=== PATIENT | female | born 1985 | race African-American/Black ===

== ENCOUNTER 2019-01-22 16:48 | Emergency (ER) | payer OTHER ==
[~2019-01-22] VITALS: Ht 162.6 cm; Wt 70.8 kg
[~2019-01-22 16:48] MED LIST: ALBU2.5V8 IH; ALPR1TAB2 PO; PARO10TA57 PO; PNV1TABL12 PO
[2019-01-22 16:53] VITALS: BP 132/58
[2019-01-22] MEDS ORDERED: AMOX1TAB61 PO (17:23)
[2019-01-22] MEDS ORDERED: IBUP-1060 PO (17:23)
--- NOTE | 2019-01-22 17:24 | PHYS DOC ---
Past Medical History Past Medical History: Depression, GERD Additional Past Medical Histor: PREECLAMPSIA, esophageal stricture Past Surgical History: Cholecystectomy, , Tubal ligation, Other Additional Past Surgical Histo: esophageal dilation Alcohol Use: Rarely Drug Use: Marijuana Adult General Chief Complaint Chief Complaint: OTHER COMPLAINTS [facility] HPI Patient is a 33 year old patient with history of myasthenia gravis who presents with complaining of swelling of her neck. Patient complaining of left cervical edema and tenderness since she woke up this morning as a constant problem that gradually getting worse. Patient denies fever and chills, sore throat, nasal congestion, cough and shortness of breath, dental infection, history of lymphadenopathy. Patient rated her pain 8/10. Review of Systems Review of Systems Constitutional: Denies fever or chills [] Eyes: Denies change in visual acuity, redness, or eye pain [] HENT: Denies nasal congestion or sore throat [] Respiratory: Denies cough or shortness of breath [] Cardiovascular: No additional information not addressed in HPI [] GI: Denies abdominal pain, nausea, vomiting, bloody stools or diarrhea [] : Denies dysuria or hematuria [] Musculoskeletal: Denies back pain or joint pain [] Integument: Denies rash or skin lesions [] Neurologic: Denies headache, focal weakness or sensory changes [] Endocrine: Denies polyuria or polydipsia [] All other systems were reviewed and found to be within normal limits, except as documented in this note. Allergies Allergies Allergies Coded Allergies Type Severity Reaction Last Updated Verified Egg Derived Allergy Severe Throat swelled up 05/18/13 Yes aripiprazole Allergy Severe Joints started to shut down / throat started clos ing 05/18/13 Yes I S O L A T I O N *CONTACT* Allergy Unknown 12/18/14 Yes Physical Exam Physical Exam Constitutional: Well developed, well nourished, no acute distress, non-toxic appearance. [] HENT: Normocephalic, atraumatic, bilateral external ears normal, oropharynx moist, no oral exudates, nose normal. [] Eyes: PERRLA, EOMI, conjunctiva normal, no discharge. [] Neck: Left anterior cervical 2 cm lymphadenopathy with surrounding mild edema without erythema or sign of abscess,Normal range of motion, no tenderness, supple, no stridor. [] Cardiovascular:Heart rate regular rhythm, no murmur [] Lungs & Thorax: Bilateral breath sounds clear to auscultation [] Skin: Warm, dry, no erythema, no rash. [] Back: No tenderness, no CVA tenderness. [] Extremities: No tenderness, no cyanosis, no clubbing, ROM intact, no edema. [] Neurologic: Alert and oriented X 3, normal motor function, normal sensory function, no focal deficits noted. [] Psychologic: Affect normal, judgement normal, mood normal. [] No axillary or inguinal lymphadenopathy Current Patient Data Vital Signs Vital Signs Date Time Temp Pulse Resp B/P (MAP) Pulse Ox O2 Delivery O2 Flow Rate FiO2 01/22/19 16:53 99.1 68 16 132/58 (82) 100 99.1 EKG EKG [] Radiology/Procedures Radiology/Procedures [] Course & Med Decision Making Course & Med Decision Making Pertinent Labs reviewed. (See chart for details) Evaluation of patient in ER showed 33-year-old female patient with single left cervical lymphadenopathy without source of infection. Prescription for Augmentin and ibuprofen was given and patient was advised to follow-up with her primary ca re physician in 7-10 days if the lymph node does not getting smaller for referral to ENT/surgeon for possible biopsy. Dragon Disclaimer Dragon Disclaimer This electronic medical record was generated, in whole or in part, using a voice recognition dictation system. Departure Departure Impression: Primary Impression: Left cervical lymphadenopathy Disposition: 01 HOME, SELF-CARE (at 1719) Condition: STABLE Referrals: TITI COX DO (PCP) Additional Instructions: Drink plenty of liquids Follow-up with your primary care physician in 7-10 days if the lymph node does n ot getting smaller Return to ER if not getting better Scripts Ibuprofen (IBUPROFEN) 800 Mg Tablet 800 MG PO PRN Q8HRS PRN for INFLAMMATION, #20 TAB Prov: IVORY ALEJANDRO MD 01/22/19 Amoxicillin/Potassium Clav (AUGMENTIN 875-125 TABLET) 1 Each Tablet 1 TAB PO Q12HR, #20 TAB Prov: IVORY ALEJANDRO MD 01/22/19 IVORY ALEJANDRO MD Jan 22, 2019 17:24
== END 2019-01-22 17:35 | disposition home or self-care (01) ==
LOC: ER 16:48
DX: R59.0 Localized enlarged lymph nodes (principal); K21.9 Gastro-esophageal reflux disease without esophagitis; Z91.012 Allergy to eggs; Z91.041 Radiographic dye allergy status; Z88.8 Allergy status to other drugs, medicaments and biological substances
CPT/HCPCS: 87070; 87880; 99283

== ENCOUNTER 2019-05-03 09:07 | Emergency (ER) | payer OTHER ==
[~2019-05-03] VITALS: Ht 163.8 cm; Wt 63.6 kg
[~2019-05-03 09:07] MED LIST changes: +AMOX1TAB61 PO; +IBUP-1060 PO; +ONDA4TAB12 PO
[2019-05-03] MEDS ORDERED: KETOROLAC TROMETHAMINE 10 MG TABLET PO STA (09:47)
[2019-05-03] MEDS ORDERED: KETOROLAC 60 MG/2 ML VIAL. ONE (09:50)
--- NOTE | 2019-05-03 10:00 | PHYS DOC ---
Past Medical History Past Medical History: Depression, GERD, Other Additional Past Medical Histor: PREECLAMPSIA, esophageal stricture, MYASTHENIA GRAVIS Past Surgical History: Cholecystectomy, , Tubal ligation, Other Additional Past Surgical Histo: esophageal dilation Smoking Status: Former Smoker Alcohol Use: Occasionally Drug Use: Marijuana Adult General Chief Complaint Chief Complaint: ANKLE PROBLEM [facility] HPI Patient is a 34 year old female who presents with right ankle pain. The patient states that she was taking a 4-year-old to school this morning and as she was taken to school the 4-year-old was pulling away from her and she turned her ankle. She states immediately she felt a pop and ankles been swollen ever since that time. States she's having difficulty putting on the ankle. Rates her pain as 8 out of 10 in severity and sharp. The patient states he is not taking medicines prior to arrival. Denies any additional symptoms. Complete ROS were reviewed and found to be within normal limits, except as documented in the HPI Current Medications Current Medications Current Medications Medications (Trade) Dose Ordered Sig/Cristiane Start Time Stop Time Status Last Admin Dose Admin Ketorolac Tromethamine (Toradol Im) 60 mg STK-MED ONCE 05/03/19 09:50 05/03/19 09:51 DC Ketorolac Tromethamine (Toradol) 10 mg 1X STAT 05/03/19 09:47 05/03/19 09:50 DC 05/03/19 09:53 10 MG Allergies Allergies Allergies Coded Allergies Type Severity Reaction Last Updated Verified Egg Derived Allergy Severe Throat swelled up 05/18/13 Yes aripiprazole Allergy Severe Joints started to shut down / throat started closing 05/18/13 Yes I S O L A T I O N *CONTACT* Allergy Unknown 12/18/14 Yes Physical Exam Physical Exam Constitutional: Well developed, well nourished, no acute distress, non-toxic appearance. [] Skin: Warm, dry, no erythema, no rash. [] Extremities: Tenderness on palpation to R foot, and high ankle. Mild edema note d. Neurovascular intact. Unable to bear weight on R foot. Neurologic: Alert and oriented X 3, normal motor function, normal sensory function, no focal deficits noted. [] Psychologic: Affect normal, judgement normal, mood normal. [] Current Patient Data Vital Signs Vital Signs Date Time Temp Pulse Resp B/P (MAP) Pulse Ox O2 Delivery O2 Flow Rate FiO2 2/25/20 09:11 98.3 60 16 106/64 (78 100 Room Air 98.3 EKG EKG [] Radiology/Procedures Radiology/Procedures [][facility] [address] [place] [address] IMAGING REPORT Signed PATIENT: SHARON HUTCHISON LACCOUNT: [id number] : 1985 LOCATION: ER AGE: 34 SEX: F EXAM STATUS: REG ER ORD. PHYSICIAN: ALLEN RAMSEY APRN REASON: tenderness PROCEDURE: ANKLE RIGHT 3V FOOT RIGHT 3V, ANKLE RIGHT 3V DATE: 05/03/2019 9:57 AM INDICATION: Tenderness COMPARISON: None. 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 Electronically signed by: Dulce Duron MD (05/03/2019 10:27 AM) [id number] DICTATED and SIGNED BY: DULCE DURON MD DATE: 05/03/19 1027 Course & Med Decision Making Course & Med Decision Making Pertinent Labs and Imaging studies reviewed. (See chart for details) Will get imaging, and give Toradol. 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 Patient states that she has injured the ankle in the past and that it has been swelling up for the last several months. Will call Dr. Hodge from Orthopedics to discuss case with him. Discussed with Dr. Hodge who recommends Foot and Ankle specialist, posterior short leg splint and to be non weight bearing. Will put in Posterior short leg splint and give crutches. Dragon Disclaimer Dragon Disclaimer This electronic medical record was generated, in whole or in part, using a voice recognition dictation system. Departure Departure Impression: Primary Impression: Talus fracture Disposition: 01 HOME, SELF-CARE Condition: STABLE Referrals: NO PCP (PCP) Patient Instructions: Ankle Fracture Additional Instructions: Thank you for visiting [facility]. We appreciate you trusting us with your care. If any additional problems come up don't hesitate to return to visit us. Please follow up with your primary care provider so they can plan additional care if needed and know about the problem that you had. If symptoms worsen come back to the Emergency Department. Any concerning symptoms that start such as chest pain, shortness of air, weakness or numbness on one side of the body, running high fevers or any other concerning symptoms return to the ER. Please follow up with Dr. Choi or Dr. Kulkarni at (Foot and Ankle Specialist). Make an appointment by calling [phone]. Please do not bear weight on injury until cleared by them. Scripts Hydrocodone/Apap 5-325 (NORCO 5-325 TABLET) 1 Each Tablet 1 TAB PO PRN Q6HRS PRN for PAIN for 3 Days, #10 TAB 0 Refills Prov: ALLEN RAMSEY APRN 05/03/19 Problem Qualifiers Primary Impression: Talus fracture Encounter type: initial encounter Fracture type: closed Talus location: dome of talus Fracture alignment: nondisplaced Laterality: right Qualified Codes: S92.144A - Nondisplaced dome fracture of right talus, initial encounter for closed fracture ALLEN RAMSEY APRN May 03, 2019 10:00
--- NOTE | 2019-05-03 10:30 | RAD ---
FOOT RIGHT 3V, ANKLE RIGHT 3V DATE: 05/03/2019 9:57 AM INDICATION: Tenderness COMPARISON: None. 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 Electronically signed by: Oracio Duron MD (05/03/2019 10:27 AM) [id number]
[2019-05-03 13:05] VITALS: BP 115/56
[2019-05-03] MEDS ORDERED: HYDR-3164 PO (13:17)
== END 2019-05-03 13:52 | disposition home or self-care (01) ==
LOC: ER 09:07
DX: S92.144A Nondisplaced dome fracture of right talus, initial encounter for closed fracture (principal); K21.9 Gastro-esophageal reflux disease without esophagitis; Z87.891 Personal history of nicotine dependence; Z91.041 Radiographic dye allergy status; Z91.012 Allergy to eggs; Z88.8 Allergy status to other drugs, medicaments and biological substances; X50.9XXA Other and unspecified overexertion or strenuous movements or postures, initial encounter; Y93.89 Activity, other specified; Y92.89 Other specified places as the place of occurrence of the external cause; Y99.8 Other external cause status
CPT/HCPCS: 29515; 73610; 73630; 99284

== ENCOUNTER 2021-05-30 05:08 | Emergency (ER) | payer OTHER ==
[~2021-05-30] VITALS: Ht 162.6 cm; Wt 63.6 kg
[~2021-05-30 05:08] MED LIST changes: +HYDR-3164 PO
--- NOTE | 2021-05-30 05:51 | PHYS DOC ---
Past Medical History Past Medical History: Depression, GERD, Other Additional Past Medical Histor: PREECLAMPSIA, esophageal stricture, MYASTHENIA GRAVIS (HELENA RAJAN I ) Past Surgical History: Cholecystectomy, , Tubal ligation, Other Additional Past Surgical Histo: esophageal dilation (HELENA RAJAN I ) Smoking Status: Never Smoker Alcohol Use: None Drug Use: Marijuana (HELENA RAJAN DO) General Adult EDM: Chief Complaint: MULTIPLE COMPLAINTS HPI: HPI: Patient is a 36 year old female past medical history of myasthenia gravis presents with a chief complaint of nausea dry heaving fever chills and myalgias. Patient states symptoms have been ongoing for 2 days progressive becoming worse. Patient has port in right chest which is used for patient's IV myasthenia gravis treatment. Patient had her port accessed and treatment 2 days ago. Patient states she was actually a day late due to nurse being sick. Patient denies any runny nose stuffy nose cough or congestion or diarrhea. Patient states she has not been vaccinated against COVID-19 and cannot receive the flu shot due to an egg allergy. Patient is currently afebrile and her vital signs are stable. (HELENA RAJAN Kaleigh AGOSTO) Review of Systems: Review of Systems: Constitutional: Positive fevers Eyes: Denies change in visual acuity. [] HENT: Denies nasal congestion or sore throat. [] Respiratory: Denies cough or shortness of breath. [] Cardiovascular: Denies chest pain or edema. [] GI: Denies abdominal pain, positive nausea positive vomiting denies diarrhea : Denies dysuria. [] Musculoskeletal: Denies back pain or joint pain. [] Positive myalgias Integument: Denies rash. [] Neurologic: Denies headache, focal weakness or sensory changes. [] Endocrine: Denies polyuria or polydipsia. [] Lymphatic: Denies swollen glands. [] Psychiatric: Denies depression or anxiety. [] (AMRITHELENA Kaleigh AGOSTO) Heart Score: C/O Chest Pain: N/A Risk Factors: Risk Factors: DM, Current or recent (<one month) smoker, HTN, HLP, family history of CAD, obesity. Risk Scores: Score 0 - 3: 2.5% MACE over next 6 weeks - Discharge Home Score 4 - 6: 20.3% MACE over next 6 weeks - Admit for Clinical Observation Score 7 - 10: 72.7% MACE over next 6 weeks - Early Invasive Strategies (HELENA RAJAN DO) Allergies: Allergies: Allergies Coded Allergies Type Severity Reaction Last Updated Verified Egg Derived Allergy Severe Throat swelled up 05/18/13 Yes aripiprazole Allergy Severe Joints started to shut down / throat started closing 05/18/13 Yes I S O L A T I O N *CONTACT* Allergy Unknown 12/18/14 Yes (HELENA RAJAN DO) Physical Exam: PE: Constitutional: Well developed, well nourished, no acute distress, non-toxic appearance. [] HENT: Normocephalic, atraumatic, bilateral external ears normal, oropharynx moist, no oral exudates, nose normal. [] Eyes: PERRLA, EOMI, conjunctiva normal, no discharge. [] Neck: Normal range of motion, no tenderness, supple, no stridor. [] Cardiovascular:Heart rate regular rhythm, no murmur [] Lungs & Thorax: Bilateral breath sounds clear to auscultation [] Abdomen: Bowel sounds normal, soft, no tenderness, no masses, no pulsatile masses. [] Skin: Warm, dry, no erythema, no rash. [] Back: No tenderness, no CVA tenderness. [] Extremities: No tenderness, no cyanosis, no clubbing, ROM intact, no edema. [] Neurologic: Alert and oriented X 3, normal motor function, normal sensory f unction, no focal deficits noted. [] Psychologic: Affect normal, judgement normal, mood normal. [] (HELENA RAJAN DO) Current Patient Data: Vital Signs: Vital Signs Date Time Temp Pulse Resp B/P (MAP) Pulse Ox O2 Delivery O2 Flow Rate FiO2 05/30/21 05:10 98.6 86 17 117/56 (76) 98 Room Air 98.6 (HELENA RAJAN DO) EKG: EKG: [] (HELENA RAJAN DO) Radiology/Procedures: Radiology/Procedures: [] (HELENA RAJAN DO) Course & Med Decision Making: Course & Med Decision Making Pertinent Labs and Imaging studies reviewed. (See chart for details) [] Patient evaluated for chief complaint. Work-up consisted of Covid flu and UA. (HELENA RAJAN DO) Course & Med Decision Making I received signout at shift change from Dr. Rajan. Patient is a 36-year-old female who complains of diffuse body aches, fever, chills, nausea and dry heaving. Pt denies any focal back pain, dysuria, hematuria or vaginal bleeding. Patient is resting comfortably in ED stretcher and is hemodynamically stable, afebrile. Analysis does contain blood. Patient with no history of kidney stones. Reports history of gallstones cholecystectomy, states her pain is much milder than that and not localized to any one place on her back or abdomen. Pt in no active distress -nephrolithiasis vs aortic dissection is on the differential although patient has no localized pain, is well-appearing, hemodynamically stable and is in no active distress. Will treat for pyelonephritis/cysitis/ascending uti with vantin and zofran odt. Patient is surprised to hear she has blood in her urine. Will discharge home with strict ED return precautions were given for fever, intractable nausea or vomiting, dehydration, confusion or worsening pain. Encouraged urgent outpatient follow-up with PMD for reevaluation. Life-threatening processes were considered but are low suspicion at this time, given history, physical exam and ED workup. Pt was educated on all prescription medications and adverse effects. All patient's questions were answered and pt was stable at time of discharge. Life/limb-threatening differential includes but is not limited to, surgical abdomen (appendicitis, cholecystitis, diverticulitis, inflammatory bowel disease, abscess, perforation), meningitis, encephalitis, Andrew's angina, endocarditis, myocarditis, life-threatening rash (necrotizing fasciitis), gynecologic and urologic emergencies (endometritis, ovarian/testicular torsion, TOA, obstructive nephropathy, prostatitis), head and neck abscess, infection concerning for sepsis or shock, or respiratory failure. I have spoken with the patient and/or caregivers. I explained the patient's condition, diagnoses and treatment plan based on the information available to me at this time. I have answered the patient and/or caregiver's questions and addressed any concerns. The patient and/or caregivers have a good understanding of patient's diagnosis, condition and treatment plan as can be expected at this point. Vital signs have been stable. Patient's condition is stable and appropriate for discharge from the emergency department. Patient will pursue further outpatient evaluation with primary care physician or other designated or consulting physician as outlined in the discharge instructions. The patient and/or caregivers are agreeable to this plan of care and follow-up instructions have been explained in detail. The patient and/or caregivers have received these instructions in written form and have expressed an understanding of the discharge instructions. The patient and/or caregivers are aware that any significant change of condition or worsening of symptoms should prompt immediate return to this or the closest emergency department or call to 911. (DHAVAL LOCKE DO) Haily Disclaimer: Haily Disclaimer: This electronic medical record was generated, in whole or in part, using a voice recognition dictation system. (HELENA RAJAN I DO) Departure Departure Impression: Primary Impression: Viral syndrome Disposition: HOME / SELF CARE / HOMELESS Condition: STABLE Referrals: NO PCP (PCP) Follow-up with your primary care physician in 24 to 48 hours OR FOLLOW UP WITH FAMILY MEDICINE: [address], [address] [place] [address] Patient Instructions: Nausea and Vomiting, Viral Syndrome Additional Instructions: EMERGENCY DEPARTMENT GENERAL DISCHARGE INSTRUCTIONS Thank you for coming to [facility] Emergency Department (ED) today and trusting us with you care. We trust that you had a positive experience in our Emergency Department. If you wish to speak to the department management, you may call the Director at [phone]. YOUR FOLLOW UP INSTRUCTIONS ARE FOLLOWS: 1. Do you have a private Doctor? If you do not have a private doctor, please ask for a resource list of physicians or clinics that may be able to assist you with follow up care. 2. The Emergency Physicain has interpreted your x-rays. The X-Ray specialist will also review them. If there is a change in the findings, you will be notified in 48 hours when at all possible. 3. A lab test or culture has been done, your results will be reviewed and you will be notified if you need a change in treatment. ADDITIONAL INSTRUCTIONS AND INFORMATION: 1. Your care today has been supervised by a physician who is specially trained in emergency care. Many problems require more than one evaluation for a complete diagnosis and treatment. We recommend that you schedule your follow up appointment as phylicia mmended to ensure complete treatment of you illness or injury. If you are unable to obtain follow up care and continue to have a problem, or if your condition worsens, we recommend that you return to the ED. 2. We are not able to safely determine your condition over the phone nor are we able to give sound medical advice over the phone. For these safety reasons, if you call for medical advice we will ask you to come to the ED for further evaluation. 3. If you have any questions regarding these discharge instructions please call the ED at [phone]. SAFETY INFORMATION: In the interest of safety, wellness, and injury prevention; we encourage you to wear your sealbelt, if you smoke; quite smoking, and we encourage family to use a protective helmet for bicycling and other sporting events that present an increased risk for head injury. IF YOUR SYMPTOMS WORSEN OR NEW SYMPTOMS DEVELOP, OR YOU HAVE CONCERNS ABOUT YOUR CONDITION; OR IF YOUR CONDITION WORSENS WHILE YOU ARE WAITING FOR YOUR FOLLOW UP APPOINTMENT; EITHER CONTACT YOUR PRIMARY CARE DOCTOR, THE PHYSICIAN WHOSE NAME AND NUMBER YOU WERE GIVEN, OR RETURN TO THE ED IMMEDIATELY. Scripts Cefpodoxime Proxetil (CEFPODOXIME PROXETIL) 200 Mg Tablet 1 TAB PO BID for 7 Days, #14 TAB Prov: DHAVAL LOCKE DO 05/30/21 Ondansetron (ONDANSETRON ODT) 4 Mg Tab.rapdis 1 TAB PO PRN Q6-8HRS, #20 TAB Prov: DHAVAL LOCKE DO 05/30/21 HELENA RAJAN I DO May 30, 2021 05:51 DHAVAL LOCKE DO May 30, 2021 07:46
[2021-05-30 06:26] LABS: INFLUENZA A PATIENT NEGATIVE (NEGATIVE); INFLUENZA B PATIENT NEGATIVE (NEGATIVE)
[2021-05-30 06:42] LABS: U PREG PATIENT NEGATIVE (NEG)
[2021-05-30 07:02] LABS: BACTERIA,URINE MODERATE /HPF (0-FEW); RBC,URINE OCC /HPF (0-2)
[2021-05-30] MEDS ORDERED: ONDA4TAB12 PO (07:45)
[2021-05-30] MEDS ORDERED: CEFP200T PO (07:45)
[2021-05-30 07:55] VITALS: BP 119/73
== END 2021-05-30 07:55 | disposition home or self-care (01) ==
LOC: ER 05:08
DX: B34.9 Viral infection, unspecified (principal); K21.9 Gastro-esophageal reflux disease without esophagitis; Z20.822 Contact with and (suspected) exposure to COVID-19; Z91.012 Allergy to eggs; Z88.8 Allergy status to other drugs, medicaments and biological substances
CPT/HCPCS: 81001; 81025; 87086; 87428; 99283